=== PATIENT | female | born 1975 | race Caucasian/White ===

== ENCOUNTER 2018-05-10 13:46 | Emergency (ER) | payer MEDICAID ==
[~2018-05-10 13:46] MED LIST: FERR-63 PO; HYDR-3927 PO; MULT-783 PO
== END 2018-05-10 15:30 | disposition left against medical advice (07) ==
LOC: ER 13:46
DX: R05 Cough (principal); Z53.21 Procedure and treatment not carried out due to patient leaving prior to being seen by health care provider

== ENCOUNTER 2019-02-14 20:35 | Inpatient (IN) | payer MEDICAID ==
[~2019-02-14] VITALS: Ht 167.6 cm; Wt 137.0 kg
[2019-02-14] MEDS ORDERED: ONDANSETRON HCL 4MG/2ML INJ IV STA (20:50)
[2019-02-14] MEDS ORDERED: SODIUM CHLORIDE 0.9% 1,000 ML IV ONE ×2 (21:00→22:30)
[2019-02-14 21:16] LABS: BG BASE EXCESS -4.9 mmol/L (-2.0-2.0); BG CARBOXYHEMOGLOBIN 5.4 % (0.5-1.5); BG DEOXYHEMOGLOBIN 7.7 % (0.0-5.0); BG FRACTION INSPIRED OXYGEN 28; BG HCO3 ACT 19.3 mmol/L (22.0-26.0); BG OXYGEN SATURATION 91.9 % (92.0-98.5); BG OXYHEMOGLOBIN 86.9 % (94.0-97.0); BG PH 7.373 (7.350-7.450); BG SAMPLE SITE RIGHT BRACHIAL; BG TOTAL HEMOGLOBIN 14.9 g/dL (12.0-18.0); BG VENT MODE NASAL CANNULA
[2019-02-14 21:46] LABS: EOSINOPHILS % 2.1 % (0.0-5.0); HEMATOCRIT. 42.3 % (36.0-48.0); HEMOGLOBIN. 14.1 g/dL (12.0-16.0); LYMPHOCYTES % 31.6 % (20.0-50.0); MEAN CORPUSCULAR HEMOGLOBIN 28.8 pg (28.0-32.0); MEAN CORPUSCULAR VOLUME 86.4 fL (81.0-99.0); MEAN PLATELET VOLUME 9.3 fl (7.4-10.4); MONOCYTES % 5.7 % (2.0-8.0); NEUTROPHILS % 59.6 % (40.0-76.0); PLATELET 265 x1000/uL (130-400); RED CELL DISTRIBUTION WIDTH 13.1 % (11.6-14.6)
[2019-02-14 21:51] LABS: CHLORIDE 102 mEq/L (98-107)
[2019-02-14 21:55] LABS: ETHANOL BLOOD 79 mg/dL
[2019-02-14 21:57] LABS: CLARITY URINE CLOUDY (CLEAR); KETONES URINE 2+ (NEGATIVE); LEUKOCYTE ESTERASE URINE 3+ (NEGATIVE); NITRITE URINE POSITIVE (NEGATIVE); OCCULT BLOOD URINE 3+ (NEGATIVE); PROTEIN URINE 3+ (NEGATIVE); SPECIFIC GRAVITY URINE 1.011 (1.005-1.030); UROBILINOGEN URINE 0.2 E.U./dL (0.2-1.0)
[2019-02-14 21:59] LABS: COLOR URINE BLOODY (YELLOW)
[2019-02-14 22:11] LABS: *AMPHETAMINES SCREEN URINE NEGATIVE (NEGATIVE); *BARBITURATES SCREEN URINE NEGATIVE (NEGATIVE); *BENZODIAZEPINES SCREEN URINE NEGATIVE (NEGATIVE); *COCAINE SCREEN URINE NEGATIVE (NEGATIVE)
[2019-02-14 22:12] LABS: CANNABINOID URINE SCREEN NEGATIVE (NEGATIVE); METHADONE URINE SCREEN NEGATIVE (NEGATIVE); OPIATES URINE SCREEN NEGATIVE (NEGATIVE); PHENCYCLIDINE URINE SCREEN NEGATIVE (NEGATIVE)
[2019-02-14] MEDS ORDERED: SODIUM CHLORIDE 0.9% 1,000 ML IV NR (23:00)
[2019-02-14] MEDS ORDERED: NALOXONE HCL 1 MG/ML 2ML VIAL IV ONE (23:15)
[2019-02-14] MEDS ORDERED: CEFTRIAXONE 1 G PREMIX 50 ML IV ONE (23:30)
[2019-02-15] MEDS ORDERED: NOREPINEPHRINE 4MG/250ML PMX 250 ML IV PRN (01:15)
[2019-02-15] MEDS ORDERED: NOREPINEPHRINE 4 MG in DEXT 5% WATER 246 ML IV PRN (01:30)
[2019-02-15 03:20] LABS: BG BASE EXCESS -5.9 mmol/L (-2.0-2.0); BG CARBOXYHEMOGLOBIN 2.1 % (0.5-1.5); BG DEOXYHEMOGLOBIN 5.3 % (0.0-5.0); BG FRACTION INSPIRED OXYGEN 21; BG HCO3 ACT 19.1 mmol/L (22.0-26.0); BG METHEMOGLOBIN 0.1 % (0.0-1.5); BG OXYGEN SATURATION 94.6 % (92.0-98.5); BG OXYHEMOGLOBIN 92.5 % (94.0-97.0); BG PCO2 36.3 mmHg (35.0-45.0); BG PO2 78.2 mmHg (75.0-100.0); BG SAMPLE SITE RIGHT BRACHIAL; BG TOTAL HEMOGLOBIN 14.8 g/dL (12.0-18.0); BG VENT MODE ROOM AIR
[2019-02-15 03:43] LABS: BASOPHILS % 0.7 % (0.0-2.0); HEMATOCRIT. 41.3 % (36.0-48.0); HEMOGLOBIN. 13.9 g/dL (12.0-16.0); LYMPHOCYTES % 21.5 % (20.0-50.0); MEAN CORPUSCULAR HEMOGLOBIN 29.2 pg (28.0-32.0); MEAN CORPUSCULAR VOLUME 86.8 fL (81.0-99.0); MEAN PLATELET VOLUME 9.1 fl (7.4-10.4); MONOCYTES % 4.8 % (2.0-8.0); PLATELET 230 x1000/uL (130-400); RED BLOOD CELL COUNT 4.76 mill/uL (4.2-5.4); RED CELL DISTRIBUTION WIDTH 13.1 % (11.6-14.6)
[2019-02-15 03:50] LABS: CHLORIDE 107 mEq/L (98-107)
[2019-02-15] MEDS ORDERED: DEXTROSE 50% WATER 50ML SYRINGE IV PRN (08:15)
[2019-02-15] MEDS ORDERED: SODIUM CHLORIDE 0.9% 1,000 ML IV SCH (08:15)
[2019-02-15] MEDS ORDERED: ONDANSETRON HCL 4MG/2ML INJ IV PRN (08:15)
[2019-02-15] MEDS ORDERED: ACETAMINOPHEN 325MG TABLET PO PRN (08:15)
[2019-02-15] MEDS ORDERED: CEFTRIAXONE 1 G PREMIX 50 ML IV SCH (08:15)
[2019-02-15] MEDS ORDERED: BLOOD SUGAR DIAGNOSTIC STRIP TEST SCH (09:00)
[2019-02-15] MEDS ORDERED: INSULIN GLARGINE UD 100 UNITS/ML SYR SUBCUT SCH (10:00)
[2019-02-15] MEDS: BLOOD SUGAR DIAGNOSTIC STRIP TEST SCH ×3 (13:00→21:00)
[2019-02-15] MEDS: INSULIN LISPRO 100 UNITS/ML SUBCUT SCH ×2 (13:20→19:40)
[2019-02-16 05:41] LABS: BASOPHILS % 0.6 % (0.0-2.0); EOSINOPHILS % 3.3 % (0.0-5.0); HEMATOCRIT. 39.4 % (36.0-48.0); HEMOGLOBIN. 13.4 g/dL (12.0-16.0); LYMPHOCYTES % 35.2 % (20.0-50.0); MEAN CORPUSCULAR HEMOGLOBIN 29.8 pg (28.0-32.0); MEAN CORPUSCULAR VOLUME 87.2 fL (81.0-99.0); MEAN PLATELET VOLUME 8.7 fl (7.4-10.4); MONOCYTES % 5.9 % (2.0-8.0); PLATELET 229 x1000/uL (130-400); RED BLOOD CELL COUNT 4.51 mill/uL (4.2-5.4); RED CELL DISTRIBUTION WIDTH 13.2 % (11.6-14.6)
[2019-02-16 05:50] LABS: CHLORIDE 108 mEq/L (98-107)
[2019-02-16] MEDS: INSULIN LISPRO 100 UNITS/ML SUBCUT SCH ×7 (08:58→23:12)
[2019-02-16 09:04] VITALS: BP 117/64
[2019-02-16] MEDS ORDERED: PNEUMOCOCCAL 23-VAL P-SAC VAC 0.5 ML IM ONE (10:00)
[2019-02-16] MEDS ORDERED: INSULIN GLARGINE UD 100 UNITS/ML SYR SUBCUT SCH (10:00)
[2019-02-16] MEDS ORDERED: GABA-531 MT (10:11)
[2019-02-16 12:00] VITALS: BP 120/74
[2019-02-16] MEDS: BLOOD SUGAR DIAGNOSTIC STRIP TEST SCH ×4 (13:07→23:12)
[2019-02-16 16:00] VITALS: BP 120/76
[2019-02-16] MEDS: NICOTINE 14MG PATCH TD SCH (17:40)
[2019-02-16] MEDS: METFORMIN HCL 500MG TABLET PO SCH ×2 (17:44→23:12)
[2019-02-16 20:00] VITALS: BP 103/78
[2019-02-16 20:17] VITALS: BP 106/61
[2019-02-16] MEDS: CEFTRIAXONE 1 G PREMIX 50 ML IV SCH (23:11)
[2019-02-16] MEDS: INSULIN GLARGINE UD 100 UNITS/ML SYR SUBCUT SCH (23:11)
[2019-02-17] VITALS: BP 112/72
[2019-02-17 04:00] VITALS: BP 113/66
[2019-02-17] MEDS ORDERED: GLIPIZIDE XL 2.5MG TABLET PO SCH (07:50)
[2019-02-17 08:00] VITALS: BP 102/58
[2019-02-17] MEDS: NICOTINE 14MG PATCH TD SCH (08:39)
[2019-02-17] MEDS: INSULIN LISPRO 100 UNITS/ML SUBCUT SCH ×5 (08:44→21:00)
[2019-02-17] MEDS: INSULIN GLARGINE UD 100 UNITS/ML SYR SUBCUT SCH ×2 (11:22→22:06)
[2019-02-17 12:00] VITALS: BP 105/60
[2019-02-17] MEDS ORDERED: INSULIN LISPRO 100 UNITS/ML SUBCUT SCH (12:20)
[2019-02-17] MEDS: BLOOD SUGAR DIAGNOSTIC STRIP TEST SCH ×3 (12:20→20:02)
[2019-02-17 16:00] VITALS: BP 107/60
[2019-02-17] MEDS: METFORMIN HCL 500MG TABLET PO SCH (17:35)
[2019-02-17 20:00] VITALS: BP 94/84
[2019-02-17] MEDS: CEFTRIAXONE 1 G PREMIX 50 ML IV SCH (22:06)
[2019-02-18] VITALS: BP 107/62
[2019-02-18 04:00] VITALS: BP 98/41
[2019-02-18] MEDS: BLOOD SUGAR DIAGNOSTIC STRIP TEST SCH ×4 (06:09→21:44)
[2019-02-18] MEDS: INSULIN LISPRO 100 UNITS/ML SUBCUT SCH ×8 (07:20→21:00)
[2019-02-18] MEDS: METFORMIN HCL 500MG TABLET PO SCH ×2 (07:50→17:50)
[2019-02-18 08:00] VITALS: BP 107/51
[2019-02-18] MEDS: NICOTINE 14MG PATCH TD SCH (08:34)
[2019-02-18] MEDS: GLIPIZIDE XL 2.5MG TABLET PO SCH (08:35)
[2019-02-18] MEDS: INSULIN GLARGINE UD 100 UNITS/ML SYR SUBCUT SCH ×2 (11:56→21:50)
[2019-02-18 12:15] VITALS: BP 108/66
[2019-02-18 16:00] VITALS: BP 117/62
[2019-02-18 20:00] VITALS: BP 109/65
[2019-02-18] MEDS: CEFTRIAXONE 1 G PREMIX 50 ML IV SCH (23:59)
[2019-02-19] VITALS: BP 110/58
[2019-02-19 04:00] VITALS: BP 95/55
[2019-02-19] MEDS: BLOOD SUGAR DIAGNOSTIC STRIP TEST SCH ×4 (06:15→21:50)
[2019-02-19] MEDS: METFORMIN HCL 500MG TABLET PO SCH ×2 (07:50→17:28)
[2019-02-19] MEDS: INSULIN LISPRO 100 UNITS/ML SUBCUT SCH ×7 (07:50→21:55)
[2019-02-19 08:00] VITALS: BP 106/53
[2019-02-19] MEDS: GLIPIZIDE XL 2.5MG TABLET PO SCH (08:13)
[2019-02-19] MEDS: NICOTINE 14MG PATCH TD SCH (08:13)
[2019-02-19] MEDS: INSULIN GLARGINE UD 100 UNITS/ML SYR SUBCUT SCH ×2 (10:39→21:45)
[2019-02-19 12:00] VITALS: BP 99/52
[2019-02-19 16:00] VITALS: BP 116/68
[2019-02-19 20:00] VITALS: BP 129/70
[2019-02-19] MEDS: CEFTRIAXONE 1 G PREMIX 50 ML IV SCH (22:24)
[2019-02-20] VITALS: BP 124/69
[2019-02-20 04:00] VITALS: BP 93/53
[2019-02-20] MEDS: BLOOD SUGAR DIAGNOSTIC STRIP TEST SCH ×2 (06:09→12:58)
[2019-02-20] MEDS: INSULIN LISPRO 100 UNITS/ML SUBCUT SCH ×3 (07:20→13:14)
[2019-02-20] MEDS: METFORMIN HCL 500MG TABLET PO SCH (07:50)
[2019-02-20 08:00] VITALS: BP 104/57
[2019-02-20] MEDS: NICOTINE 14MG PATCH TD SCH (09:02)
[2019-02-20] MEDS: GLIPIZIDE XL 2.5MG TABLET PO SCH (09:02)
[2019-02-20] MEDS: INSULIN GLARGINE UD 100 UNITS/ML SYR SUBCUT SCH (09:33)
[2019-02-20 12:00] VITALS: BP 123/68
[2019-02-20] MEDS ORDERED: INSULIN LISPRO 100 UNITS/ML SUBCUT SCH (17:20)
== END 2019-02-20 14:35 | disposition left against medical advice (07) | DRG 720 ==
LOC: ER 20:35 → EDBEDREQ 23:33 → EDBEDREQTM 23:33 → EDBEDREQSVC 02-15 00:56 → EDBEDREQDT 02-15 00:56 → EDBEDREQTM 02-15 00:56 → CANRESERV 02-15 07:07 → ENRESERV 02-15 07:07 → EDBEDREQSVC 02-15 10:25 → 6WST 02-15 14:47 → ENRESERV 02-16 07:28
PROVIDERS: ADMIT Internal Medicine; ATTEND Internal Medicine
DX: A41.9 Sepsis, unspecified organism (principal); R65.21 Severe sepsis with septic shock; E87.2 Acidosis; E11.65 Type 2 diabetes mellitus with hyperglycemia; E66.01 Morbid (severe) obesity due to excess calories; T43.012A Poisoning by tricyclic antidepressants, intentional self-harm, initial encounter; Y92.89 Other specified places as the place of occurrence of the external cause; F17.200 Nicotine dependence, unspecified, uncomplicated; N39.0 Urinary tract infection, site not specified; Z68.42 Body mass index [BMI] 45.0-49.9, adult; F32.9 Major depressive disorder, single episode, unspecified; Z71.3 Dietary counseling and surveillance; Z71.6 Tobacco abuse counseling; Z79.4 Long term (current) use of insulin
CPT/HCPCS: 36415; 36600; 71045; 80048; 80305; 80307; 80320; 80329; 81003; 82375; 82805; 82962; 83605; 84145; 84484; 90732; 93005; 96361; 96365; 96367; 96372; 96375; 99291; C1893; J0696; J1815; J2310; J2405; J3490; J7030; G0480

== ENCOUNTER 2019-08-11 16:31 | Emergency (ER) | payer MEDICAID ==
[~2019-08-11] VITALS: Ht 167.6 cm; Wt 136.0 kg
[~2019-08-11 16:31] MED LIST changes: -FERR-63 PO; +GABA-531 MT; -HYDR-3927 PO
[2019-08-11 16:49] VITALS: BP 124/73
== END 2019-08-11 18:47 | disposition left against medical advice (07) ==
LOC: ER 16:31
DX: Z53.21 Procedure and treatment not carried out due to patient leaving prior to being seen by health care provider (principal)

== ENCOUNTER 2020-01-07 20:53 | Emergency (ER) | payer MEDICAID ==
[~2020-01-07] VITALS: Ht 167.6 cm; Wt 130.0 kg
[2020-01-07 23:48] LABS: CLARITY URINE CLOUDY (CLEAR); COLOR URINE YELLOW (YELLOW); KETONES URINE NEGATIVE (NEGATIVE); LEUKOCYTE ESTERASE URINE NEGATIVE (NEGATIVE); NITRITE URINE POSITIVE (NEGATIVE); OCCULT BLOOD URINE NEGATIVE (NEGATIVE); PH URINE 5.5 (4.5-8.0); PROTEIN URINE NEGATIVE (NEGATIVE); SPECIFIC GRAVITY URINE 1.028 (1.005-1.030); UROBILINOGEN URINE 0.2 E.U./dL (0.2-1.0)
[2020-01-08] MEDS ORDERED: LEVOFLOXACIN 750MG PREMIX 150 ML IV SCH (00:15)
[2020-01-08] MEDS ORDERED: AZITHROMYCIN 500 MG TABLET PO ONE (00:15)
[2020-01-08 01:39] VITALS: BP 128/72
== END 2020-01-08 01:41 | disposition home or self-care (01) ==
LOC: ER 20:53
DX: N39.0 Urinary tract infection, site not specified (principal); J18.9 Pneumonia, unspecified organism; I10 Essential (primary) hypertension; E11.9 Type 2 diabetes mellitus without complications; J45.909 Unspecified asthma, uncomplicated
CPT/HCPCS: 71045; 81003; 87077; 87086; 87186; 87804; 93005; 96365; 99285; J1956

== ENCOUNTER 2022-09-09 18:56 | Emergency (ER) | payer MEDICAID ==
[~2022-09-09 18:56] MED LIST changes: -GABA-531 MT; +GABA-532 MT
== END 2022-09-09 20:45 | disposition left against medical advice (07) ==
LOC: ER 18:56
DX: Z53.21 Procedure and treatment not carried out due to patient leaving prior to being seen by health care provider (principal)
CPT/HCPCS: 99281